=== PATIENT | male | born 1965 | race Caucasian/White ===

== ENCOUNTER → 2016-12-15 | Outpatient (CLI) | payer MEDICAID, OTHER ==
[2016-12-15] MEDS: IOHEXOL 300 MG/ML 75 ML VIAL. IV ONE (09:24)
--- NOTE | 2016-12-15 10:34 | RAD ---
Indication Marfan's syndrome. Assess for aortic aneurysm and/or dissection. Initially noncontrast images through the chest were obtained. This was followed by CTA targeted to the thoracic and abdominal aorta. Images were obtained through the chest, abdomen and pelvis. Images were reformatted in the coronal and sagittal planes. Volume rendered images were also generated and reviewed. No prior imaging is available. For the postcontrast images 100 cc of Omnipaque 300 was administered. On the initial noncontrast images postoperative changes are seen involving the aortic valve and aortic root. There appears to be a mitral valve replacement as well. There is no evidence of intramural hematoma. There is mild aneurysmal dilatation of the proximal descending thoracic aorta. Maximum dilatation is approximately 3.7 cm. On the contrast images no acute finding is seen associated with the thoracic aorta. There is no evidence of dissection. Mild aneurysmal dilatation of the proximal descending thoracic aorta is again seen. The distal descending thoracic aorta has a normal diameter. The abdominal aorta is normal apart from minimal plaquing. No acute or significant finding is seen associated with the abdominal aorta or its major branches There is some minimal pleural-parenchymal scarring in the lungs. An acute parenchymal infiltrate is not seen. There is no dominant soft tissue mass. There is no significant hilar or mediastinal adenopathy. There are multiple low density masses in the liver compatible with cysts. A definite significant finding in the liver is not seen. The gallbladder appears grossly normal. The spleen appears normal. There is a very small periumbilical hernia appearing uncomplicated. No pancreatic abnormality is seen. The adrenal glands and kidneys appear unremarkable apart from occasional small, subcentimeter, left renal cysts. Diverticular disease is seen associated with the large bowel most pronounced in the sigmoid colon. Active inflammation is not seen. IMPRESSION: No acute finding seen in the chest, abdomen or pelvis. No acute finding seen involving the thoracic or abdominal aorta. No dissection. 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 Hepatic and renal cysts. Diverticular disease in the large bowel predominantly centered on the sigmoid colon PQRS Compliance Statement: One or more of the following individualized dose reduction techniques were utilized for this examination: 1. Automated exposure control 2. Adjustment of the mA and/or kV according to patient size 3. Use of iterative reconstruction technique
== END | disposition home or self-care (01) ==
LOC: CT 08:38 → EDBD 10:00
PROVIDERS: ATTEND Internal Medicine Cardiovascular Disease
DX: N28.1 Cyst of kidney, acquired (principal); K57.90 Diverticulosis of intestine, part unspecified, without perforation or abscess without bleeding; I71.2 Thoracic aortic aneurysm, without rupture; K42.9 Umbilical hernia without obstruction or gangrene; Q87.40 Marfan syndrome, unspecified
CPT/HCPCS: 71275; 74174; Q9967

== ENCOUNTER → 2017-05-15 | Outpatient (CLI) | payer OTHER ==
--- NOTE | 2017-05-15 09:49 | CARD ---
APPROVED REPORT EXAM: Two-dimensional and M-mode echocardiogram with Doppler and color Doppler. Other Information Quality : Average Rhythm : NSR INDICATION Marfans syndrome 2D DIMENSIONS RVDd2.8 (2.9-3.5cm)Left Atrium(2D)4.4 (1.6-4.0cm) IVSd1.0 (0.7-1.1cm)Aortic Root(2D)2.7 (2.0-3.7cm) LVDd5.1 (3.9-5.9cm)LVOT Diameter2.1 (1.8-2.4cm) PWd1.0 (0.7-1.1cm)LVDs3.5 (2.5-4.0cm) FS (%) 31.9 %SV73.3 ml LVEF(%)59.7 (>50%) Aortic Valve AoV Peak Clemente.206.8cm/sAoV VTI43.3cm AO Peak GR.17.1mmHgLVOT Peak Clemente.115.4cm/s LVOT VTI 22.21cmAO Mean GR.10mmHg DOROTHY (VMAX)1.02bf1FTW (VTI)1.80cm2 Mitral Valve MV E Zemwwszk441.6cm/sMV E Peak Gr.7mmHg MV DECEL [id number] A Eepwieoo289.3cm/s MV E Mean Gr.3mmHgMV ILL43fu E/A Ratio0.9MV A Kyqmrhbv988iy MVA (PHT)2.92cm2 Tricuspid Valve TR P. Zzuxekrg707xn/sRAP WFLALBRE8usQp TR Peak Gr.74zfXxWSWW96edLd LEFT VENTRICLE The left ventricle is normal size. There is normal left ventricular wall thickness. Left ventricle sy stolic function is low normal. EF 50-55% Septal motion consistent with post-operative state, otherwis e grossly normal wall motion. Tissue Doppler imaging reveals mild left ventricular diastolic dysfunct ion. There is no ventricular septal defect visualized. RIGHT VENTRICLE The right ventricle is normal size. The right ventricular systolic function is normal. ATRIA The left atrium is mildly dilated. The right atrium size is normal. The interatrial septum is intact with no evidence for an atrial septal defect or patent foramen ovale as noted on 2-D or Doppler imagi ng. AORTIC VALVE Doppler and Color Flow revealed no significant aortic regurgitation. Calculated aortic valve area is 1.8 cm2 with maximum pressure gradient of 17 mmHg and mean pressure gradient of 10 mmHg. There is a m echanical aortic valve prosthesis. MITRAL VALVE Maximum pressure gradient of 7 mmHg and mean pressure gradient of 3 mmHg across the prosthetic valve. Doppler and Color Flow revealed trace to mild mitral regurgitation. There is a mechanical mitral derick ve. TRICUSPID VALVE The tricuspid valve is normal in structure. Doppler and Color Flow revealed mild tricuspid regurgitat ion. The PA pressure was estimated at 36 mmHg. There is no tricuspid valve stenosis. PULMONIC VALVE The pulmonic valve is not well visualized. Doppler and Color Flow revealed no pulmonic valvular regur gitation. There is no pulmonic valvular stenosis. GREAT VESSELS The aortic root is normal in size. The ascending aorta is normal in size. Pulmonary veins not recorde d. The IVC is normal in size and collapses >50% with inspiration. PERICARDIAL EFFUSION There is no evidence of significant pericardial effusion. Critical Notification Critical Value: No <Conclusion> Left ventricle systolic function is low normal. EF 50-55% Septal motion consistent with post-operative state, otherwise grossly normal wall motion. Calculated aortic valve area is 1.8 cm2 with maximum pressure gradient of 17 mmHg and mean pressure g radient of 10 mmHg. There is a mechanical aortic valve prosthesis. Maximum pressure gradient of 7 mmHg and mean pressure gradient of 3 mmHg across the prosthetic valve. Doppler and Color Flow revealed trace to mild mitral regurgitation. There is a mechanical mitral derick ve.
== END | disposition home or self-care (01) ==
LOC: ECHO 08:42
PROVIDERS: ATTEND Internal Medicine Cardiovascular Disease
DX: I08.1 Rheumatic disorders of both mitral and tricuspid valves (principal); Q87.40 Marfan syndrome, unspecified; Z95.2 Presence of prosthetic heart valve
CPT/HCPCS: 93306

== ENCOUNTER → 2018-07-02 | Outpatient (CLI) | payer OTHER ==
--- NOTE | 2018-07-02 14:38 | CARD ---
MR#: [id number] Date of Study: 07/02/2018 Ordering Physician: JULIAN QUINTANILLA, Referring Physician: JULIAN QUINTANILLA, Tech: Heaven Vásquez APPROVED REPORT EXAM: Two-dimensional and M-mode echocardiogram with Doppler and color Doppler. Other Information Quality : AverageHR: 70bpm INDICATION Mitral Valve Replacement RISK FACTORS Hypertension 2D DIMENSIONS RVDd2.8 (2.9-3.5cm)Left Atrium(2D)4.8 (1.6-4.0cm) IVSd1.1 (0.7-1.1cm)Aortic Root(2D)2.6 (2.0-3.7cm) LVDd5.0 (3.9-5.9cm)PWd1.2 (0.7-1.1cm) LVDs3.8 (2.5-4.0cm)FS (%) 23.0 % SV53.5 mlLVEF(%)46.0 (>50%) Aortic Valve AoV Peak Clemente.277.8cm/sAoV VTI47.8cm AO Peak GR.30.9mmHgLVOT Peak Clemente.113.1cm/s LVOT VTI 22.45cmAO Mean GR.16mmHg Mitral Valve MV E Omlwvbhb636.6cm/sMV E Peak Gr.8mmHg MV DECEL [id number] A Thdsekxo736.9cm/s MV E Mean Gr.4mmHgE/A Ratio0.9 Pulmonary Valve PV Peak Lzrguool28.2cm/sPV Peak Grad.4mmHg Tricuspid Valve TR P. Hfbbxwqm819hv/sRAP RYCJTYIE8daIm TR Peak Gr.79uvPwCHLL99vePv LEFT VENTRICLE The left ventricle is normal size. There is borderline to mild concentric left ventricular hypertroph y. The left ventricular systolic function is normal and the ejection fraction is within normal range. The Ejection Fraction is 50-55%. Transmitral Doppler flow pattern is Grade I-abnormal relaxation pat tern. RIGHT VENTRICLE The right ventricle is normal size. There is normal right ventricular wall thickness. The right ventr icular systolic function is normal. ATRIA The left atrium is mildly dilated. The right atrium size is normal. The interatrial septum is intact with no evidence for an atrial septal defect or patent foramen ovale as noted on 2-D or Doppler imagi ng. AORTIC VALVE Doppler and Color Flow revealed mild aortic regurgitation. Calculated aortic valve area is 1.64 cm2 w ith maximum pressure gradient of 31 mmHg and mean pressure gradient of 16 mmHg. There is a prosthetic aortic valve prosthesis. MITRAL VALVE Maximum pressure gradient of 8 mmHg and mean pressure gradient of 4 mmHg. Doppler and Color-flow reve aled trace to mild mitral regurgitation. There is a mechanical mitral valve. TRICUSPID VALVE The tricuspid valve is normal in structure and function. Doppler and Color Flow revealed trace tricus pid regurgitation. There is no tricuspid valve stenosis. PULMONIC VALVE The pulmonic valve is not well visualized. Doppler and Color Flow revealed trace pulmonic valvular re gurgitation. GREAT VESSELS The aortic root is normal in size. The IVC is normal in size and collapses >50% with inspiration. PERICARDIAL EFFUSION There is no evidence of significant pericardial effusion. Critical Notification Critical Value: No <Conclusion> The left ventricular systolic function is normal and the ejection fraction is within normal range. Th e Ejection Fraction is 50-55%. There is a prosthetic aortic valve prosthesis. Doppler and Color Flow revealed mild aortic regurgitation. Calculated aortic valve area is 1.64 cm2 with maximum pressure gradient of 31 mmHg and mean pressure gradient of 16 mmHg. There is a mechanical mitral valve. Maximum pressure gradient of 8 mmHg and mean pressure gradient of 4 mmHg. Signed by : Julian Quintanilla, Electronically Approved : 07/02/2018 14:36:26
== END | disposition home or self-care (01) ==
LOC: ECHO 12:36
PROVIDERS: ATTEND Internal Medicine Cardiovascular Disease
DX: Z48.812 Encounter for surgical aftercare following surgery on the circulatory system (principal); I35.1 Nonrheumatic aortic (valve) insufficiency; Z95.2 Presence of prosthetic heart valve
CPT/HCPCS: 93306

== ENCOUNTER → 2019-01-30 | Outpatient (CLI) | payer OTHER ==
--- NOTE | 2019-01-30 17:03 | CARD ---
MR#: [id number] Date of Study: 01/30/2019 Ordering Physician: CARLA QUINTANILLA, Referring Physician: CARLA QUINTANILLA, Tech: Heaven Vásquez APPROVED REPORT EXAM: Two-dimensional and M-mode echocardiogram with Doppler and color Doppler. Other Information Quality : AverageHR: 73bpm INDICATION Aortic Valve Disease Peripheral Edema Aortic Valve Replacement RISK FACTORS Hypertension 2D DIMENSIONS Left Atrium(2D)3.9 (1.6-4.0cm)IVSd1.1 (0.7-1.1cm) Aortic Root(2D)2.8 (2.0-3.7cm)LVDd4.7 (3.9-5.9cm) LVOT Diameter1.9 (1.8-2.4cm)PWd0.9 (0.7-1.1cm) LVDs3.3 (2.5-4.0cm)FS (%) 30.3 % SV60.3 mlLVEF(%)57.6 (>50%) Aortic Valve AoV Peak Clemente.219.9cm/sAoV VTI40.9cm AO Peak GR.19.3mmHgLVOT Peak Clemente.80.7cm/s LVOT VTI 17.94cmAO Mean GR.11mmHg DOROTHY (VMAX)1.64cu2QYX (VTI)1.23cm2 Mitral Valve MV E Nkrdtfmd47.0cm/sMV E Peak Gr.7mmHg MV DECEL [id number] A Bbvypalh628.4cm/s MV E Mean Gr.4mmHgE/A Ratio0.7 Pulmonary Valve PV Peak Yqdtkvcm21.5cm/sPV Peak Grad.3mmHg Tricuspid Valve TR P. Ggludyit364td/sRAP JLGLTMIN9twMb TR Peak Gr.52nuAvIVTK18ziFx LEFT VENTRICLE The left ventricle is normal size. There is borderline to mild concentric left ventricular hypertroph y. The left ventricular systolic function is normal and the ejection fraction is within normal range. The Ejection Fraction is 50-55%. There is normal LV segmental wall motion. Transmitral Doppler flow pattern is Grade I-abnormal relaxation pattern. RIGHT VENTRICLE The right ventricle is borderline dilated. There is normal right ventricular wall thickness. The righ t ventricular systolic function is normal. ATRIA The left atrium is mildly dilated. The right atrium size is normal. The interatrial septum is intact with no evidence for an atrial septal defect or patent foramen ovale as noted on 2-D or Doppler imagi ng. AORTIC VALVE Doppler and Color Flow revealed mild aortic regurgitation. Calculated aortic valve area is 1.3 cm2 wi th maximum pressure gradient of 20 mmHg and mean pressure gradient of 11 mmHg. There is a mechanical aortic valve prosthesis. MITRAL VALVE Calculated mitral valve maximum pressure gradient of 7 mmHg and mean pressure gradient of 4 mmHg. Dop pler and Color-flow revealed mild mitral regurgitation. There is a mechanical mitral valve. TRICUSPID VALVE The tricuspid valve is normal in structure and function. Doppler and Color Flow revealed trace tricus pid regurgitation with an estimated PAP of 33 mmHg. There is no tricuspid valve stenosis. PULMONIC VALVE Doppler and Color Flow revealed trace pulmonic valvular regurgitation. There is no pulmonic valvular stenosis. GREAT VESSELS The aortic root is normal in size. The IVC is dilated and collapses >50%. PERICARDIAL EFFUSION There is no evidence of significant pericardial effusion. Critical Notification Critical Value: No <Conclusion> The left ventricular systolic function is normal and the ejection fraction is within normal range. Th e Ejection Fraction is 50-55%. There is normal LV segmental wall motion. There is a mechanical aortic valve prosthesis. Calculated aortic valve area is 1.3 cm2 with maximum pressure gradient of 20 mmHg and mean pressure g radient of 11 mmHg. There is a mechanical mitral valve. Calculated mitral valve maximum pressure gradient of 7 mmHg and m lorenza pressure gradient of 4 mmHg. Signed by : Carla Quintanilla, Electronically Approved : 01/30/2019 17:02:27
== END | disposition home or self-care (01) ==
LOC: ECHO 13:22
PROVIDERS: ATTEND Internal Medicine Cardiovascular Disease
DX: I08.0 Rheumatic disorders of both mitral and aortic valves (principal); Z95.2 Presence of prosthetic heart valve
CPT/HCPCS: 93306